=== PATIENT | female | born 1990 | race Caucasian/White ===

== ENCOUNTER → 2018-04-21 15:42 | Outpatient (CLI) | payer OTHER, SELFPAY ==
[2018-04-21 18:25] LABS: hCG Titer Quant., Serum 5686 mIU/mL (<9 non-preg)
== END ==
PROVIDERS: Visit Provider Obstetrics & Gynecology
DX: O20.0 Threatened abortion (principal); N92.1 Excessive and frequent menstruation with irregular cycle
CPT/HCPCS: 36415; 84702

== ENCOUNTER → 2019-01-14 17:11 | Outpatient (CLI) | payer OTHER, SELFPAY ==
[2019-01-19 14:32] LABS: HPV Reflexed? NOT INDICATED
== END ==
PROVIDERS: Referring Provider Obstetrics & Gynecology; Visit Provider Obstetrics & Gynecology
DX: Z12.4 Encounter for screening for malignant neoplasm of cervix (principal)
CPT/HCPCS: 88175; G0145

== ENCOUNTER → 2019-01-27 08:43 | Outpatient (CLI) | payer OTHER, SELFPAY ==
[2019-01-27 10:45] LABS: Hemoglobin A1c 4.9 % (4.2-6.3)
[2019-01-27 10:47] LABS: Estradiol 190.8 pg/mL; Free T3 2.9 pg/mL (2.18-3.98); T4 Free Direct 1.04 ng/dL (0.76-1.46); Thyroid Stim Hormone (TSH) 1.11 uIU/mL (0.358-3.74)
[2019-01-28 11:42] LABS: DHEA Sulfate 296.4 ug/dL (84.8-378.0)
== END ==
PROVIDERS: Visit Provider Obstetrics & Gynecology
DX: N94.3 Premenstrual tension syndrome (principal); N97.0 Female infertility associated with anovulation
CPT/HCPCS: 36415; 82533; 82627; 82670; 83036; 84144; 84403; 84439; 84443; 84481; 82626

== ENCOUNTER → 2021-01-13 15:29 | Outpatient (CLI) | payer OTHER, SELFPAY ==
[2021-01-13 16:37] LABS: Absolute Lymphocyte Count 2.04 X10^3/uL (0.83-4.51); Absolute Neutrophil Count 7.8 X10^3/uL (2.0-7.7); Basophil# 0.03 X10^3/uL; Basophil% 0.3 % (0-1); Eosinophil# 0.02 X10^3/uL; Eosinophils% 0.2 % (0-5); Hematocrit 40.3 % (37-47); Hemoglobin 13.3 g/dL (12.0-15.0); Lymphocyte # 2.04 X10^3/ul (4.0); Lymphocyte % 19.5 % (19-41); Mean Corpuscular Hgb 28.3 pg (27.0-32.0); Mean Corpuscular Volume 85.7 fL (81-99); Mean Platelet Vol. 10.4 fl (6.2-12.0); Monocyte# 0.57 X10^3/uL; Monocyte% 5.4 % (0-10); NRBC Flagged by Analyzer 0 % (0-5); Neutrophil # 7.77 X10^3/uL (2.7-7.7); Neutrophil % 74.3 % (47-70); Platelet Count 260 K/mm3 (150-450); RBC Distribution Width CV 12.9 % (11.6-14.6); RBC Distribution Width SD 40.4 fl (35.1-43.9); White Blood Count 10.5 K/mm3 (4.4-11.0)
[2021-01-14 09:03] LABS: HIV - WCH Non-Reactive (Nonreactive); Hepatitis B Surface Antigen Non-Reactive (Nonreactive); Hepatitis C Antibody Non-Reactive (Nonreactive); Rubella IgG Reactive (Nonreactive); Syphilis Antibodies Non-reactive
[2021-01-16 20:06] LABS: Chlamydia By Nucleic Acid AMP Negative (Negative)
[2021-01-16 20:36] LABS: Gonococcus By Nucleic Acid AMP Negative (Negative)
== END ==
PROVIDERS: Visit Provider Student in an Organized Health Care Education/Training Program
DX: Z11.3 Encounter for screening for infections with a predominantly sexual mode of transmission (principal); Z34.81 Encounter for supervision of other normal pregnancy, first trimester
CPT/HCPCS: 36415; 85025; 86703; 86762; 86780; 86803; 87086; 87088; 87340; 87491; 87591

== ENCOUNTER → 2021-06-06 | Outpatient (CLI) | payer OTHER, SELFPAY ==
[2021-06-06 11:32] LABS: Hematocrit 31.1 % (37-47); Hemoglobin 10.2 g/dL (12.0-15.0); Mean Corp Hgb Conc 32.8 g/dL (32-36); Mean Corpuscular Hgb 28.7 pg (27.0-32.0); Mean Corpuscular Volume 87.4 fL (81-99); Mean Platelet Vol. 10.5 fl (6.2-12.0); Platelet Count 229 K/mm3 (150-450); RBC Distribution Width CV 12.5 % (11.6-14.6); RBC Distribution Width SD 40.2 fl (35.1-43.9); Red Blood Count 3.56 M/mm3 (4.2-5.4); White Blood Count 9.7 K/mm3 (4.4-11.0)
[2021-06-06 11:38] LABS: Glucose Challenge Gest 1H 50g 113 mg/dL (70-140)
== END | disposition home or self-care (01) ==
LOC: WOBLAB 08:44
PROVIDERS: Visit Provider Obstetrics & Gynecology
DX: Z34.83 Encounter for supervision of other normal pregnancy, third trimester (principal)
CPT/HCPCS: 36415; 82950; 85027

== ENCOUNTER → 2021-07-27 10:08 | Outpatient (CLI) | payer OTHER, SELFPAY | PROVIDERS: Visit Provider Obstetrics & Gynecology | DX: Z36.85 Encounter for antenatal screening for Streptococcus B (principal) | CPT/HCPCS: 87077; 87081; 87186 ==

== ENCOUNTER 2021-08-17 06:48 | Inpatient (IN) | payer OTHER, SELFPAY ==
[2021-08-17] VITALS (50 sets, daily range): BP systolic 103–145; BP diastolic 54–91; PULSE 75–145; RESP 16–20; TEMP 36.2–37.2; O2SAT 82–100
[2021-08-17] MEDS: Lactated Ringers 1,000 ML 50 ML IV (06:55)
[2021-08-17 07:18] LABS: Absolute Lymphocyte Count 1.56 X10^3/uL (0.83-4.51); Absolute Neutrophil Count 6.4 X10^3/uL (2.0-7.7); Basophil# 0.02 X10^3/uL; Basophil% 0.2 % (0-1); Eosinophil# 0.03 X10^3/uL; Eosinophils% 0.3 % (0-5); Hematocrit 30.5 % (37-47); Hemoglobin 9.9 g/dL (12.0-15.0); Lymphocyte # 1.56 X10^3/ul (0.83-4.51); Mean Corp Hgb Conc 32.5 g/dL (32-36); Mean Corpuscular Hgb 25.4 pg (27.0-32.0); Mean Corpuscular Volume 78.4 fL (81-99); Monocyte# 0.65 X10^3/uL; Monocyte% 7.5 % (0-10); NRBC Flagged by Analyzer 0 % (0-5); Neutrophil # 6.37 X10^3/uL (2.7-7.7); Neutrophil % 73.3 % (47-70); Platelet Count 236 K/mm3 (150-450); RBC Distribution Width CV 13.7 % (11.6-14.6); RBC Distribution Width SD 38.9 fl (35.1-43.9); Red Blood Count 3.89 M/mm3 (4.2-5.4); White Blood Count 8.7 K/mm3 (4.4-11.0)
[2021-08-17] MEDS: Oxytocin 30 units/NS 500 ml 30 UNITS/500 ML IV.SOLN IV (07:45)
--- NOTE | 2021-08-17 08:52 | HP.PCM.OB_ITS ---
History and Physical Date of Admission: 08/17/21 Chief complaint: Leakage of fluid History present illness: 30-year-old G2, P0 at 39 weeks 0 days with RADHA 08/24/2021 by LMP arrives with leakage of clear fluid. Denies headache, visual changes, chest pain, shortness of breath, nausea vomiting, right upper quadrant pain. Patient states good movement. Obstetric history: G1: SAB G2: Current Past medical history: None Past surgical history wisdom teeth extraction Medications: vitamin Allergies: No known drug allergies Social history: Denies smoking, alcohol use, drug use Family history: Denies history DVT or PE Review of systems: Besides the above pertinent positives a full review of systems was performed and found to be negative Physical exam: Vital signs: Blood pressure 133/81 pulse 83 General: Normal-appearing no acute distress HEENT: Normocephalic atraumatic no cervical of adenopathy Cardiac/respiratory: No use of accessory muscles, nonlabored breathing Abdomen: Soft, nontender, gravid Extremities: No peripheral edema normal peripheral pulses Psych: Normal affect normal demeanor nonpressured speech Labs: White blood cell count 8.7, hemoglobin 9.9, hematocrit 30.5%, platelets 236. Blood type O positive antibody negative Assessment plan: 30-year-old G2, P0 at 39 weeks and 0 days arrives with SROM Admit labor delivery CEFM GBS positive: To start penicillin Initially with elevated blood pressures will draw CBC, CMP, LDH. With SROM will hold on urine protein creatinine ratio, will not change consultant Anesthesia see Routine orders
[2021-08-17] MEDS: Lactated Ringers 500 ML 999 ML IV (09:35)
[2021-08-17 09:43] LABS: ALB/GLOB Ratio 0.5 RATIO (0.9-2.4); AST(SGOT) 30 U/L (15-37); Alanine Aminotransfer ALT/SGPT 45 U/L (13-56); Albumin, Serum 2.3 g/dL (3.2-5.0); Alkaline Phosphatase 71 U/L (45-117); Anion Gap 9 (5-15); BUN 10 mg/dL (7-18); BUN/Creat Ratio 15.7 RATIO (10-20); Calcium,Total 8.9 mg/dL (8.5-10.1); Chloride 107 mmol/L (98-107); Creatinine, Serum 0.64 mg/dL (0.55-1.02); EST Glomerular Filtration Rate 116 mL/min (>60); Est Glom Filt Rate - Afr Amer 140 mL/min (>60); Estimated Creatinine Clearance 110.99 ml/min; Globulin 4.4 g/dL (2.2-4.2); Glucose 80 mg/dL (74-106); LDH 154 U/L (84-246); Potassium 4.2 mmol/L (3.5-5.1); Protein, Total 6.7 g/dL (6.4-8.2); Sodium Level 139 mmol/L (136-145)
[2021-08-17] MEDS: fentaNYL-bupivacaine (epidural) 100 ML BAG EPIDURAL (10:38)
[2021-08-17] MEDS: Penicillin G 3,000,000 Units 50 ML 100 UNITS IV (11:19)
[2021-08-17] MEDS: Acetaminophen 500 MG Tablet PO (12:27)
[2021-08-17] MEDS: Sodium Citrate/Citric Acid 30 ML UDC PO (12:27)
[2021-08-17] MEDS: Cefazolin 2 GM in 0.9% Normal Saline 100 ML IV (12:40)
--- NOTE | 2021-08-17 12:48 | PN.OBGYN_ITS ---
Subjective Subjective Comfortable with spinal Objective Data Objective Data Vital Signs: Vital Signs Temp Pulse BP Pulse Ox 97.6 F L 86 129/65 H 100 08/17/21 12:06 08/17/21 12:06 08/17/21 12:06 08/17/21 12:06 Weight: 175 lb Body Mass Index (BMI) 30.0 Intake & Output: Intake and Output for Last 24 Hours 08/15/21 08/16/21 08/17/21 23:59 23:59 23:59 Intake Total 799.16 / 799.16 Balance 799.16 / 799.16 Lab / Micro Data Result Diagrams: 08/17/21 06:55 08/17/21 09:05 Labs: Laboratory Results - last 24 hr 08/17/21 06:55: WBC 8.7, RBC 3.89 L, Hgb 9.9 L, Hct 30.5 L, MCV 78.4 L, MCH 25.4 L, MCHC 32.5, RDW Std Deviation 38.9, RDW Coeff of Mihai 13.7, Plt Count 236, MPV 12.0, Immature Gran % (Auto) 0.700, Neut % (Auto) 73.3 H, Lymph % (Auto) 18.0 L, [place] % (Auto) 7.5, Eos % (Auto) 0.3, Baso % (Auto) 0.2, Absolute Neuts (auto) 6.4, Absolute Lymphs (auto) 1.56, Nucleated RBC % 0 08/17/21 06:55: Blood Type O POSITIVE, Antibody Screen NEGATIVE 08/17/21 09:05: Sodium 139, Potassium 4.2, Chloride 107, Carbon Dioxide 23.0, Anion Gap 9, BUN 10, Creatinine 0.64, Estim Creat Clear Calc 110.99, Est GFR (MDRD) Af Amer 140, Est GFR (MDRD) Non-Af 116, BUN/Creatinine Ratio 15.7, Glucose 80, Calcium 8.9, Total Bilirubin 0.30, AST 30, ALT 45, Alkaline Phosphatase 71, Lactate Dehydrogenase 154, Total Protein 6.7, Albumin 2.3 L, Globulin 4.4 H, Albumin/Globulin Ratio 0.5 L Micro: Microbiology 08/17/21 07:00 Nasal Secretion SARS-CoV-2 Antigen (Rapid) - Final Physical Exam Const alert, oriented x3, no apparent distress, average body habitus, healthy appearing and well nourished HEENT normocephalic and moist oral mucous membranes Head and Scalp: atraumatic Face and Sinus: normal facial exam Eyes PERRL Neck full ROM Resp normal respiratory effort, no retractions and no use of accessory muscles Psych mental status grossly normal, affect normal, speech normal and activity/motor behavior normal Assessment & Plan (1) : PLAN: Called by nursing that patient is 4 to 5 cm with footling breech. Arrived with patient in the OR, comfortable with spinal anesthesia. Educated patient on findings and need for section, risk benefits alternatives discussed. Patient states understanding wish to proceed. We will proceed f orward with primary section for breech. 2 g Ancef 500 mg azithromycin
--- NOTE | 2021-08-17 13:29 | EX.PCM.OBRPT ---
Details Operative Information Date of Procedure: 08/17/21 Pre-Operative Diagnosis: Term, breech Post-Operative Diagnosis: Term, breech graphics programmer #1: John Burciaga Findings Description of Procedure: Procedure: Primary low transverse section Via Pfannenstiel incision Surgeon: Huan Gallego MD Anesthesia: Epidural EBL: 600 cc IV fluids: 1300 cc Urine output: 300 cc Complications: None Specimen: None Findings: Female infant in footling breech position, Apgars 9/9. Uterus with 7 cm submucosal fibroid posterior uterine wall. Otherwise normal uterus, tubes, and ovaries. Consent: Patient arrived with spontaneous rupture of membranes 1 cm soon found to be footling breech, in need of primary section. Patient understands the risk of the procedure include but are not limited to visceral or vascular injury, prolonged hospitalization, blood loss and need for transfusion, reoperation. Patient states understanding and wishes to proceed. All questions were answered and consent was signed. Procedure: Patient was brought back to the OR where epidural anesthesia found be adequate. 2 g of Ancef and 500 mg of azithromycin were given for infection prophylaxis. Patient was prepared and draped in a supine position with leftward tilt. A Pfannenstiel incision was made at the skin with a scalpel. The incision was carried down to the fascia with a scalpel. The fascia was excised and extended laterally. Inferior aspect of the fascia was grasped and the underlying rectus and pyramidalis muscle were dissected off sharply with Jalloh scissors. In a similar fashion the superior aspect of the fascia was grasped and the underlying rectus muscle was dissected off sharply. Rectus muscle was dissected the midline down to the level of the pubic symphysis. Preperitoneal fatty tissue was noted and peritoneum was entered bluntly. Peritoneum was extended superiorly and inferiorly with good visualization of bladder. Bladder blade was inserted and vesicouterine peritoneum was identified. Low transverse hysterotomy was made. Bladder blade was removed. Hand was placed into the hysterotomy and baby was delivered in standard breech fashion. Cord was cut and clamped and baby was handed off to nursing. Placenta was delivered via manual extraction. IV oxytocin was initiated in order to facilitate uterine contractions. Uterus was exteriorized and wiped out with dry laparotomy sponge in order to remove remaining placental membranes. Above findings were noted, submucosal fibroid that was hemostatic. Uterus was closed in a continuous running fashion. Second layer was performed. [id number] suture was used for hemostasis. Good hemostasis was noted. Uterus was placed back into the abdominal cavity and incision was reinspected. Good hemostasis was noted. Fascia was closed in a continuous running fashion. Skin was closed in a subcuticular fashion. All counts were correct x2 good hemostasis was noted. Patient was brought back to recovery in a stable condition.
[2021-08-17] MEDS: Oxytocin 30 units/NS 500 ml 30 UNITS/500 ML IV.SOLN 167 UNITS IV (14:15)
[2021-08-17] MEDS: Ketorolac 30 MG/ML Syringe IV ×2 (15:39→21:49)
[2021-08-17] MEDS: Lactated Ringers 1,000 ML 100 ML IV (17:15)
[2021-08-17] MEDS: Acetaminophen 500 MG Tablet 1000 MG PO (19:15)
[2021-08-17] MEDS: 0.9% Saline Lock 10 ML Syringe IV (21:52)
[2021-08-18 00:37] VITALS: PULSE 70; RESP 18; O2SAT 99
[2021-08-18] MEDS: Acetaminophen 500 MG Tablet 1000 MG PO ×4 (01:21→19:08)
[2021-08-18 01:23] VITALS: BP 114/71; PULSE 79; RESP 18; TEMP 36.3; O2SAT 100
[2021-08-18] MEDS: 0.9% Saline Lock 10 ML Syringe IV ×2 (04:28→09:59)
[2021-08-18] MEDS: Ketorolac 30 MG/ML Syringe IV ×2 (04:28→09:59)
[2021-08-18 04:47] VITALS: BP 108/60; PULSE 71; RESP 16; TEMP 36.1
[2021-08-18 04:50] LABS: Hematocrit 23.9 % (37-47); Hemoglobin 7.7 g/dL (12.0-15.0); Mean Corp Hgb Conc 32.2 g/dL (32-36); Mean Corpuscular Hgb 25.7 pg (27.0-32.0); Mean Corpuscular Volume 79.7 fL (81-99); Mean Platelet Vol. 11.4 fl (6.2-12.0); Platelet Count 173 K/mm3 (150-450); RBC Distribution Width CV 13.7 % (11.6-14.6); RBC Distribution Width SD 39.6 fl (35.1-43.9)
--- NOTE | 2021-08-18 08:22 | PN.OBGYN_ITS ---
Subjective Subjective Postop day 1. Pain well controlled, minimal at incision. Ambulating and voiding. Working on breast-feeding. We will see again today. Lochia minimal. Objective Data Objective Data Vital Signs: Vital Signs Temp Pulse Resp BP Pulse Ox 97 F L 71 16 108/60 100 08/18/21 04:47 08/18/21 04:47 08/18/21 04:47 08/18/21 04:47 08/18/21 01:23 Oxygen Delivery Method Room Air Weight: 79.379 kg Body Mass Index (BMI) 30.0 Intake & Output: Intake and Output for Last 24 Hours 08/16/21 08/17/21 08/18/21 23:59 23:59 23:59 Intake Total 3166.63 / 3166.63 943.33 / 943.33 Output Total 900 / 900 400 / 400 Balance 2266.63 / 2266.63 543.33 / 543.33 Lab / Micro Data Result Diagrams: 08/18/21 04:40 08/17/21 09:05 Labs: Laboratory Results - last 24 hr 08/17/21 09:05: Sodium 139, Potassium 4.2, Chloride 107, Carbon Dioxide 23.0, Anion Gap 9, BUN 10, Creatinine 0.64, Estim Creat Clear Calc 110.99, Est GFR (MDRD) Af Amer 140, Est GFR (MDRD) Non-Af 116, BUN/Creatinine Ratio 15.7, Glucose 80, Calcium 8.9, Total Bilirubin 0.30, AST 30, ALT 45, Alkaline Phosphatase 71, Lactate Dehydrogenase 154, Total Protein 6.7, Albumin 2.3 L, Globulin 4.4 H, Albumin/Globulin Ratio 0.5 L 08/18/21 04:40: WBC 17.0 H, RBC 3.00 L, Hgb 7.7 L, Hct 23.9 L, MCV 79.7 L, MCH 25.7 L, MCHC 32.2, RDW Std Deviation 39.6, RDW Coeff of Mihai 13.7, Plt Count 173, MPV 11.4 Micro: Microbiology 08/17/21 07:00 Nasal Secretion SARS-CoV-2 Antigen (Rapid) - Final Physical Exam Const alert, oriented x3 and no apparent distress HEENT normocephalic Head and Scalp: atraumatic Neck full ROM Resp normal respiratory effort Cardio regular rate GI normal to inspection, nondistended, normoactive bowel sounds GI Narrative: Uterus 2 cm below umbilicus. dressing clean and dry Back/Spine normal ROM Extremity normal to inspection Extremity Narrative: Minimal pedal edema Neuro no focal motor deficits and no sensory deficits noted Psych mental status grossly normal and affect normal Assessment & Plan (1) state: PLAN: Postop day 1 status post primary section for breech posit ion. Complicated by acute on chronic anemia secondary to surgery. Vitals are stable. Patient is asymptomatic: Denies lightheadedness, tachycardia, shortness of breath. We will supplement with iron on home-going. Blood pressure was elevated on admission, labs were within normal limits and blood pressure within normal limits at this time. Will have postop visit in 1 week. Home tomorrow. (2) Delivery by section: (3) Other acute postprocedural pain:
--- NOTE | 2021-08-18 08:25 | PCM.DC ---
Discharge Instructions Diet Discharge Diet: No restrictions Activity Discharge Activity: Return to Normal Activity and May Shower May resume sexual activity in: 4-6 weeks Weight Bearing Status: Weight bearing as tolerated Lifting Restrictions: No greater than 25 pounds Dressing / Incision Call your doctor if your incision/area has: Continuous Slow Oozing, Increased Redness and Foul Smelling Discharge Call your doctor if you observe: Fever of 101 or Higher, Change in Color, Inability to urinate, Using more than 1 pad per hour, Shortness of breath, Dizziness, Swelling in the ankles, Chest pain and Calf discomfort Remove Dressing in: 1 week Cleanse incision/area with: Soap & Water Follow Up Care Please Follow Up With: Huan Gallego MD When: 1-week post op appointment in 6-week visit Test Results: Test results from this visit will be discussed in further detail at your follow-up appointment, if applicable. Discharge Plan Admission Admit Date/Time: 08/17/21 06:48 Primary Reason for Your Visit: section Attending Provider: Huan Gallego Primary Care Provider: Care Physician,Tamera Primary Discharge Orders/Prescriptions Prescriptions: New oxycodone 5 mg tablet 5 mg PO Q6H PRN (Reason: pain (scale score 7-10)) 5 Days Qty: 20 RF: 0 Continued [id number] 1 mg Tablet 1 tab PO DAILY RF: 0 Referrals / Follow Up: Care Physician,No Primary [Primary Care Provider] - Disposition Disposition (needs filled in before D/C Order can be placed): Home, Self Care
[2021-08-18 09:47] VITALS: BP 114/63; PULSE 83; RESP 18; TEMP 36.8; O2SAT 97
[2021-08-18] MEDS: Enoxaparin 40 MG/0.4 ML Syringe SC (10:00)
[2021-08-18] MEDS: Senna/Docusate Sodium 1 Tablet PO (13:38)
[2021-08-18 13:40] VITALS: BP 111/61; PULSE 93; RESP 16; TEMP 36.6; O2SAT 97
[2021-08-18] MEDS: Ibuprofen 600 MG Tablet PO ×2 (15:45→21:00)
[2021-08-18 19:54] VITALS: BP 106/63; PULSE 94; RESP 16; TEMP 36.6
[2021-08-19] MEDS: Acetaminophen 500 MG Tablet 1000 MG PO ×2 (01:40→07:21)
[2021-08-19 02:12] VITALS: BP 132/71; PULSE 77; RESP 16; TEMP 36.6
[2021-08-19] MEDS: Ibuprofen 600 MG Tablet PO ×2 (02:28→08:34)
--- NOTE | 2021-08-19 07:39 | PCM.PN.OB ---
Subjective Subjective Postoperative day 2. Pain controlled. Lochia minimal. Breast-feeding going better. Objective Data Objective Data Vital Signs: Vital Signs Temp Pulse Resp BP Pulse Ox 97.9 F 77 16 132/71 H 97 08/19/21 02:12 08/19/21 02:12 08/19/21 02:12 08/19/21 02:12 08/18/21 13:40 Oxygen Delivery Method Room Air Weight: 79.379 kg Body Mass Index (BMI) 30.0 Intake & Output: Intake and Output for Last 24 Hours 08/17/21 08/18/21 08/19/21 23:59 23:59 23:59 Intake Total 3166.63 / 3166.63 943.33 / 943.33 Output Total 900 / 900 400 / 400 Balance 2266.63 / 2266.63 543.33 / 543.33 Lab / Micro Data Result Diagrams: 08/18/21 04:40 08/17/21 09:05 Micro: Microbiology 08/17/21 07:00 Nasal Secretion SARS-CoV-2 Antigen (Rapid) - Final Physical Exam Const alert, oriented x3 and no apparent distress HEENT normocephalic Head and Scalp: atraumatic Neck full ROM Resp normal respiratory effort Cardio regular rate GI normal to inspection, nondistended, normoactive bowel sounds GI Narrative: Uterus 2 cm below umbilicus Back/Spine normal ROM Extremity normal to inspection Extremity Narrative: Minimal pedal edema Neuro no focal motor deficits and no sensory deficits noted Psych mental status grossly normal and affect normal Assessment & Plan (1) Delivery by section: PLAN: Postop day 2 status post primary section for breech position. Complicated by acute on chronic anemia secondary to surgery. Vitals are stable. Patient continues to be asymptomatic.. We will supplement with iron on home-going. Blood pressure was elevated on admission, labs were within normal limits and blood pressure within normal limits at this time. Will have postop visit in 1 week. Home tomorrow. (2) state: (3) Other acute postprocedural pain:
[2021-08-19 08:36] VITALS: BP 114/74; PULSE 84; RESP 16; TEMP 36.7; O2SAT 96
[2021-08-19] MEDS: Enoxaparin 40 MG/0.4 ML Syringe SC (10:27)
[2021-08-19] MEDS: Senna/Docusate Sodium 1 Tablet PO (10:28)
== END 2021-08-19 12:00 | disposition home or self-care (01) | DRG 788 ==
LOC: WPOUT 06:52 → WP 06:52
PROVIDERS: Obstetrics & Gynecology; Admitting Provider Obstetrics & Gynecology; Referring Provider Obstetrics & Gynecology; Visit Provider Obstetrics & Gynecology
DX: O99.824 Streptococcus B carrier state complicating childbirth (principal); O34.13 Maternal care for benign tumor of corpus uteri, third trimester; D25.0 Submucous leiomyoma of uterus; O32.8XX0 Maternal care for other malpresentation of fetus, not applicable or unspecified; Z20.822 Contact with and (suspected) exposure to COVID-19; Z3A.39 39 weeks gestation of pregnancy; Z37.0 Single live birth
CPT/HCPCS: 59025; 59050; 80053; 83615; 85025; 85027; 86850; 86900; 86901; 87426; 99218; J7120; A4216; G0378; J2405

== ENCOUNTER → 2022-06-05 | Outpatient (CLI) | payer OTHER, SELFPAY ==
[2022-06-08 15:46] LABS: HPV APTIMA, High Risk Negative (Negative)
== END | disposition home or self-care (01) ==
LOC: LABSPEC 09:17
PROVIDERS: Visit Provider Student in an Organized Health Care Education/Training Program
DX: Z12.4 Encounter for screening for malignant neoplasm of cervix (principal)
CPT/HCPCS: 87624; 88175; G0145

== ENCOUNTER → 2022-09-18 | Outpatient (CLI) | payer OTHER, SELFPAY ==
[2022-09-18 17:08] LABS: Absolute Lymphocyte Count 2.61 X10^3/uL (0.83-4.51); Basophil# 0.04 X10^3/uL; Basophil% 0.3 % (0-1); Eosinophil# 0.07 X10^3/uL; Eosinophils% 0.6 % (0-5); Hematocrit 39.4 % (37-47); Hemoglobin 13.5 g/dL (12.0-15.0); Lymphocyte # 2.61 X10^3/ul (0.83-4.51); Lymphocyte % 22.8 % (19-41); Mean Corp Hgb Conc 34.3 g/dL (32-36); Mean Corpuscular Hgb 28.5 pg (27.0-32.0); Mean Corpuscular Volume 83.3 fL (81-99); Mean Platelet Vol. 9.9 fl (6.2-12.0); Monocyte# 0.76 X10^3/uL; Monocyte% 6.6 % (0-10); NRBC Flagged by Analyzer 0 % (0-5); Neutrophil # 7.95 X10^3/uL (2.7-7.7); Neutrophil % 69.4 % (47-70); Platelet Count 282 K/mm3 (150-450); RBC Distribution Width CV 12.8 % (11.6-14.6); RBC Distribution Width SD 38.9 fl (35.1-43.9); Red Blood Count 4.73 M/mm3 (4.2-5.4); White Blood Count 11.5 K/mm3 (4.4-11.0)
[2022-09-18 18:33] LABS: HIV - WCH Non-Reactive (Nonreactive); Hepatitis B Surface Antigen Non-Reactive (Nonreactive); Hepatitis C Antibody Non-Reactive (Nonreactive); Rubella IgG Reactive (Nonreactive); Syphilis Antibodies Non-reactive
[2022-09-20 09:00] LABS: V-Zoster IgG (Immunity) 1735 index (Immune >165)
[2022-09-21 04:07] LABS: Chlamydia By Nucleic Acid AMP Negative (Negative)
[2022-09-21 13:50] LABS: Gonococcus By Nucleic Acid AMP Negative (Negative)
== END | disposition home or self-care (01) ==
LOC: WOBLAB 16:44
PROVIDERS: Visit Provider Student in an Organized Health Care Education/Training Program
DX: Z34.81 Encounter for supervision of other normal pregnancy, first trimester (principal)
CPT/HCPCS: 36415; 85025; 86703; 86762; 86780; 86787; 86803; 87077; 87086; 87088; 87186; 87340; 87491; 87591

== ENCOUNTER → 2022-10-16 | Outpatient (CLI) | payer OTHER, SELFPAY | END | disposition home or self-care (01) | LOC: LABSPEC 16:27 | PROVIDERS: Visit Provider Student in an Organized Health Care Education/Training Program | DX: N39.0 Urinary tract infection, site not specified (principal) | CPT/HCPCS: 87086; 87088 ==

== ENCOUNTER → 2022-12-11 | Outpatient (CLI) | payer OTHER, SELFPAY ==
--- NOTE | 2022-12-11 13:14 | US_ITS ---
STUDY: SECOND AND THIRD TRIMESTER OBSTETRICAL ULTRASOUND REASON FOR EXAM: Female, 32 years old ANATOMY LMP: 07/18/2022. TECHNIQUE: Transabdominal TECHNICAL QUALITY: Adequate. PRIOR ULTRASOUND: None. FINDINGS: There is a single intrauterine fetus. The fetus is in a cephalic presentation. There is demonstrated cardiac activity with a heart rate of 138 bpm. There is a normal amniotic fluid volume. The largest amniotic fluid pocket measures 4.64 cm. The amniotic fluid index (ROB) is within normal limits. The placenta is anterior in location and is not low lying. The placental tip is at 5.7 cm proximal to the cervical os. There are Grade 0 placental changes. The cervix measures 3.7 cm in length. The adnexal regions are not visualized. BIOMETRY: BPD: 4.88 cm: 20 weeks, 5 days HC: 18 cm: 20 weeks, 3 days AC: 15.65 cm: 20 weeks, 6 days FL: 3.42 cm: 20 weeks, 5 days CI: 77.7% FL/BPD: 70% FL/HC: FL/AC: 21.8% HC/AC: 1.1 age by current US: 20 weeks, 4 days. RADHA by current US: 04/26/2023. Estimated weight: 378 grams, +/- 57 grams, 41 %. Age by LMP: 20 weeks, 6 days. RADHA by LMP: 04/24/2023. ANATOMY: Gender: Female Cranium: Normal lateral ventricles. Normal choroid plexus. Normal cerebellum. Normal cisterna magna. Normal face, nose and lips. Chest: Normal 4-chamber heart. Abdomen/Pelvis: Normal diaphragm. Normal stomach. Normal abdominal wall. Normal cord insertion. Normal 3 vessel cord. Normal kidneys. Normal bladder. Spine: Normal cervical spine. Normal thoracic spine. Normal lumbar spine. Normal sacrum. Extremities: Normal bilateral upper extremities. Normal bilateral lower extremities. US/OB Anatomy Scan IMPRESSION: Single live injury Single live intrauterine gestation with a mean gestational age of 20 weeks and 4 days. Electronically Signed: Reji Rojas MD at 15:36 EST ,
== END | disposition home or self-care (01) ==
PROVIDERS: Visit Provider Student in an Organized Health Care Education/Training Program
DX: Z34.82 Encounter for supervision of other normal pregnancy, second trimester (principal)
CPT/HCPCS: 76805

== ENCOUNTER → 2023-01-08 | Outpatient (CLI) | payer OTHER, SELFPAY ==
[2023-01-08 09:59] LABS: Absolute Lymphocyte Count 1.96 X10^3/uL (0.83-4.51); Basophil# 0.02 X10^3/uL; Basophil% 0.2 % (0-1); Eosinophil# 0.04 X10^3/uL; Eosinophils% 0.4 % (0-5); Hematocrit 34.3 % (37-47); Hemoglobin 11.3 g/dL (12.0-15.0); Lymphocyte # 1.96 X10^3/ul (0.83-4.51); Lymphocyte % 20.6 % (19-41); Mean Corp Hgb Conc 32.9 g/dL (32-36); Mean Corpuscular Hgb 28.8 pg (27.0-32.0); Mean Corpuscular Volume 87.3 fL (81-99); Mean Platelet Vol. 9.8 fl (6.2-12.0); Monocyte# 0.47 X10^3/uL; Monocyte% 4.9 % (0-10); NRBC Flagged by Analyzer 0 % (0-5); Neutrophil # 6.97 X10^3/uL (2.7-7.7); Neutrophil % 73.3 % (47-70); Platelet Count 249 K/mm3 (150-450); RBC Distribution Width CV 12.4 % (11.6-14.6); RBC Distribution Width SD 39.7 fl (35.1-43.9); Red Blood Count 3.93 M/mm3 (4.2-5.4); White Blood Count 9.5 K/mm3 (4.4-11.0)
[2023-01-08 10:28] LABS: Glucose Challenge Gest 1H 50g 114 mg/dL (70-140)
[2023-01-08 10:50] LABS: Syphilis Antibodies Non-reactive
== END | disposition home or self-care (01) ==
PROVIDERS: Visit Provider Student in an Organized Health Care Education/Training Program
DX: Z34.82 Encounter for supervision of other normal pregnancy, second trimester (principal)
CPT/HCPCS: 36415; 82950; 85025; 86780

== ENCOUNTER → 2023-02-15 | Outpatient (CLI) | payer SELFPAY | END | disposition home or self-care (01) | LOC: LABSPEC 13:47 | PROVIDERS: Visit Provider Nurse Practitioner Women's Health | DX: N39.0 Urinary tract infection, site not specified (principal) | CPT/HCPCS: 87086; 87088 ==

== ENCOUNTER → 2023-03-29 | Outpatient (CLI) | payer SELFPAY ==
[2023-03-29 16:26] LABS: Absolute Lymphocyte Count 2.37 X10^3/uL (0.83-4.51); Basophil# 0.02 X10^3/uL; Basophil% 0.2 % (0-1); Eosinophil# 0.06 X10^3/uL; Eosinophils% 0.5 % (0-5); Hematocrit 29.4 % (37-47); Hemoglobin 9.6 g/dL (12.0-15.0); Lymphocyte # 2.37 X10^3/ul (0.83-4.51); Lymphocyte % 19.2 % (19-41); Mean Corp Hgb Conc 32.7 g/dL (32-36); Mean Corpuscular Hgb 25.9 pg (27.0-32.0); Mean Corpuscular Volume 79.5 fL (81-99); Mean Platelet Vol. 10.3 fl (6.2-12.0); Monocyte# 0.77 X10^3/uL; Monocyte% 6.2 % (0-10); NRBC Flagged by Analyzer 0 % (0-5); Neutrophil # 8.96 X10^3/uL (2.7-7.7); Neutrophil % 72.6 % (47-70); Platelet Count 245 K/mm3 (150-450); RBC Distribution Width CV 13.2 % (11.6-14.6); RBC Distribution Width SD 37.3 fl (35.1-43.9); White Blood Count 12.3 K/mm3 (4.4-11.0)
== END | disposition home or self-care (01) ==
LOC: LABSPEC 15:56
PROVIDERS: Visit Provider Nurse Practitioner Women's Health
DX: Z34.83 Encounter for supervision of other normal pregnancy, third trimester (principal); Z36.85 Encounter for antenatal screening for Streptococcus B; Z3A.00 Weeks of gestation of pregnancy not specified
CPT/HCPCS: 36415; 85025; 87081

== ENCOUNTER 2023-04-09 02:43 | Inpatient (IN) | payer SELFPAY ==
[2023-04-09] VITALS (104 sets, daily range): BP systolic 87–122; BP diastolic 47–83; PULSE 70–109; RESP 16–18; TEMP 35.7–36.8; O2SAT 94–100; BMI 30.2
--- NOTE | 2023-04-09 03:08 | PCM.HP.BLA ---
History and Physical Date of Admission: 04/09/23 Chief complaint: Contractions History present illness: 32-year-old G2, P1 at 37 weeks and 6 days with RADHA 04/24/2022 arrives with contractions. Denies headache, vision change, chest pain, shortness of breath, nausea vomit, right upper quadrant pain. Patient states good movement. is complicated by beta thalassemia, BMI 30 Obstetric history: G1: 39-week primary section for breech female 6 pounds 7 ounces G2: Current Past medical history: Beta thalassemia Medications: vitamin Past surgical history: section, wisdom tooth extraction Social history: Denies smoking, alcohol use, drug use Allergies: No known drug allergies Family history: Denies history DVT or PE Review of systems: Besides above pertinent positives a full review of systems was performed and found to be negative Physical exam: Vitals: Blood pressure 122/83 pulse 102 temperature 97.7 ?F General: Normal-appearing no acute distress HEENT: Normocephalic atraumatic no cervical lymphadenopathy Cardiac/respiratory: No use of accessory muscles, nonlabored breathing Abdomen: Soft, nontender, gravid Extremities: No peripheral edema normal peripheral pulses Psych: Normal affect normal demeanor nonpressured speech Labs: Pending Assessment and plan: Called by nursing patient arrived to triage with contractions cervical exam per nursing 4 cm instructed nursing to call in OR team and [employer] SET UP OPERATOR notify anesthesia, given orders for 2 g Ancef and 500 mg of azithromycin preoperatively. Patient seen and examined. 32-year-old at 37 weeks and 6 days in labor with history of section elects for repeat section. Patient understands risk of the procedure include but are not limited to visceral vascular injury, prolonged hospitalization, blood loss and need for transfusion, reoperation. Patient state understanding wish to proceed. All questions were answered and consent was signed. For repeat now. Beta thalassemia for CBC now and follow-up
[2023-04-09] MEDS: Lactated Ringers 1,000 ML 999 ML IV (03:15)
[2023-04-09 03:26] LABS: Absolute Lymphocyte Count 1.85 X10^3/uL (0.83-4.51); Absolute Neutrophil Count 12.8 X10^3/uL (2.0-7.7); Basophil# 0.03 X10^3/uL; Basophil% 0.2 % (0-1); Eosinophil# 0.01 X10^3/uL; Eosinophils% 0.1 % (0-5); Hematocrit 32.4 % (37-47); Hemoglobin 10.4 g/dL (12.0-15.0); Lymphocyte # 1.85 X10^3/ul (0.83-4.51); Lymphocyte % 11.9 % (19-41); Mean Corp Hgb Conc 32.1 g/dL (32-36); Mean Corpuscular Volume 77.9 fL (81-99); Mean Platelet Vol. 10.2 fl (6.2-12.0); Monocyte# 0.72 X10^3/uL; Monocyte% 4.6 % (0-10); NRBC Flagged by Analyzer 0 % (0-5); Neutrophil # 12.83 X10^3/uL (2.7-7.7); Neutrophil % 82.2 % (47-70); Platelet Count 237 K/mm3 (150-450); RBC Distribution Width CV 14.6 % (11.6-14.6); RBC Distribution Width SD 38.7 fl (35.1-43.9); Red Blood Count 4.16 M/mm3 (4.2-5.4); White Blood Count 15.6 K/mm3 (4.4-11.0)
[2023-04-09] MEDS: Acetaminophen 500 MG Tablet 1000 MG PO ×4 (03:26→23:05)
[2023-04-09] MEDS: Sodium Citrate/Citric Acid 30 ML UDC PO (03:26)
[2023-04-09] MEDS: Cefazolin 2 GM in 0.9% Normal Saline 100 ML IV (03:35)
--- NOTE | 2023-04-09 04:22 | EX.PCM.OBRPT ---
Details Operative Information Date of Procedure: 04/09/23 Pre-Operative Diagnosis: Term, labor, history of section Post-Operative Diagnosis: Term, labor, history of section Findings Description of Procedure: Procedure: Repeat low transverse section Via Pfannenstiel incision Surgeon: Huan Gallego MD Anesthesia: Spinal EBL: 700 cc Urine output: 50 cc IV fluids: 800 cc Complications: None Specimen: None Findings: Female infant in vertex position Apgars 7/9. Normal uterus, tubes, and ovaries. Moderate amount of scar tissue Consent: Patient arrived in labor with a history of section at term desires repeat section Via Pfannenstiel incision. Patient understands risk of the procedure include but are not limited to visceral or vascular injury, prolonged hospitalization, blood loss need for transfusion, reoperation. Patient state understanding wish to proceed. All questions were answered and consent was signed. Procedure: Patient was brought back to the OR where spinal anesthesia was found to be adequate. 2 g of Ancef and 500 mg of azithromycin were given for infection prophylaxis. Patient was prepared and draped in a supine position with leftward tilt. A Pfannenstiel incision was made at the skin with a scalpel. The incision was carried down to the fascia with a scalpel. The fascia was excised and extended laterally. Inferior aspect of the fascia was grasped with a clamp and the underlying rectus and pyramidalis muscle were dissected off sharply. In a similar fashion the superior aspect of the fascia was grasped with a clamp and the underlying rectus muscle was dissected off sharply. Rectus muscle was dissected midline down to the level of the pubic symphysis. Preperitoneal fatty tissue was noted and peritoneum was entered bluntly. Peritoneum was extended superiorly and inferiorly with good visualization of bladder. Bladder blade was inserted and vesicouterine peritoneum was identified. Low transverse hysterotomy was made. Thin meconium fluid was noted, notified nursing. Hand was placed into the incision and gentle fundal pressure was applied once the head was brought into the incision and the bladder blade was removed. Head and shoulders were delivered with ease. Cord was clamped and cut. Baby was handed off to nursing. Placenta was delivered via cord traction and fundal massage. IV oxytocin was initiated in order to facilitate uterine contractions. Uterus was exteriorized and wiped out with dry laparotomy sponge in order to remove remaining placental membranes. Uterus was closed in a continuous running fashion. Hemostasis was achieved with the Bovie. Uterus was placed back in the abdominal cavity and the incision was reinspected, good hemostasis was noted. Piedad was placed over the hysterotomy. Good hemostasis was noted. Fascia was closed in a continuous running fashion with PDS suture. Subcutaneous irrigation was performed and good hemostasis was noted. Skin was closed in a subcuticular fashion. Good hemostasis was noted. All counts were correct x2. Patient tolerated the procedure well and was brought to recovery in a stable condition.
[2023-04-09] MEDS: Oxytocin 15 Units/NS 250ml 15 UNITS/250 ML IV.SOLN 83 UNITS IV (04:49)
[2023-04-09] MEDS: Ketorolac 30 MG/ML Syringe IV ×4 (04:54→23:04)
[2023-04-09 04:55] LABS: Syphilis Antibodies Non-reactive
[2023-04-09] MEDS: Lactated Ringers 1,000 ML 100 ML IV (07:52)
[2023-04-09] MEDS: Senna/Docusate Sodium 1 Tablet PO (10:00)
[2023-04-09] MEDS: Enoxaparin 40 MG/0.4 ML Syringe SC (16:39)
[2023-04-09] MEDS: 0.9% Saline Lock 10 ML Syringe IV (17:38)
[2023-04-10] MEDS: Acetaminophen 500 MG Tablet 1000 MG PO ×2 (04:30→11:16)
[2023-04-10] MEDS: Ibuprofen 600 MG Tablet PO ×2 (08:40→14:51)
--- NOTE | 2023-04-10 08:58 | PCM.PN.OB ---
Subjective Subjective Pain controlled. Lochia minimal. Breast-feeding. Objective Data Objective Data Vital Signs: Vital Signs Temp Pulse Resp BP Pulse Ox O2 Del Method 97.7 F L 86 16 98/53 L 97 Room Air 04/09/23 20:00 04/09/23 20:00 04/09/23 20:00 04/09/23 20:00 04/09/23 20:00 04/09/23 20:00 Oxygen Delivery Method Room Air Weight: 80.014 kg Body Mass Index (BMI) 30.2 Intake & Output: Intake and Output for Last 24 Hours 04/08/23 04/09/23 04/10/23 23:59 23:59 23:59 Intake Total 2278.33 / 2278.33 Output Total 1999 Balance 278.33 / 278.33 Lab / Micro Data Attestation: I reviewed the patient's lab results. 04/09/23 03:15 Physical Exam Const alert, oriented x3 and no apparent distress HEENT normocephalic Head and Scalp: atraumatic Neck full ROM Resp normal respiratory effort Cardio regular rate GI normal to inspection, nondistended, normoactive bowel sounds GI Narrative: Uterus 2 cm below umbilicus, dressing clean and dry Back/Spine normal ROM Extremity normal to inspection Extremity Narrative: Minimal pedal edema Neuro no focal motor deficits and no sensory deficits noted Psych mental status grossly normal and affect normal Assessment & Plan (1) Acute postoperative pain: PLAN: Postop day 1 status post repeat section. Stable. Pain controlled. Discharge home today. (2) Delivery by section:
--- NOTE | 2023-04-10 08:59 | DCINST_ITS ---
Discharge Instructions Diet Discharge Diet: No restrictions Activity Discharge Activity: Return to Normal Activity and May Shower May resume sexual activity in: 4-6 weeks Weight Bearing Status: Weight bearing as tolerated Lifting Restrictions: No greater than 25 pounds Dressing / Incision Call your doctor if your incision/area has: Continuous Slow Oozing, Increased Redness and Swelling at the incision site Call your doctor if you observe: Fever of 101 or Higher, Change in Color, Inability to urinate, Using more than 1 pad per hour, Shortness of breath, Dizziness, Swelling in the ankles, Chest pain and Calf discomfort Remove Dressing in: 1 week Cleanse incision/area with: Soap & Water and Keep Dressing Clean & Dry Follow Up Care Please Follow Up With: Laura Gallego DO When: 2-week and 6-week visit Test Results: Test results from this visit will be discussed in further detail at your follow- up appointment, if applicable. Discharge Plan Admission Admit Date/Time: 04/09/23 02:43 Primary Reason for Your Visit: section Attending Provider: Huan Gallego Primary Care Provider: Care PhysicianTamera Primary Instructions Additional Instructions / Restrictions: Regular diet. Okay to shower. No tub baths for 2 weeks. No intercourse for 6 to 8 weeks. No lifting over 25 pounds for 2 to 3 weeks Discharge Orders/Prescriptions Prescriptions: New oxycodone 5 mg tablet 5 mg PO Q6H PRN (Reason: pain (scale score 7-10)) 4 Days Qty: 16 0RF Discontinued [id number] 1 mg Tablet 1 tab PO DAILY oxycodone 5 mg tablet 5 mg PO Q6H PRN (Reason: pain (scale score 7-10)) 5 Days Qty: 20 0RF Referrals / Follow Up: Care Physician,No Primary [Primary Care Provider] - Disposition Disposition (needs filled in before D/C Order can be placed): Home, Self Care
[2023-04-10 10:25] VITALS: BP 103/70; PULSE 92; RESP 16; TEMP 36.8; O2SAT 98
--- NOTE | 2023-04-10 10:45 | EKG12_ITS ---
Test Reason : SYNCOPE Blood Pressure : / mmHG Vent. Rate : 096 BPM Atrial Rate : 096 BPM P-R Int : 108 ms QRS Dur : 078 ms QT Int : 332 ms P-R-T Axes : 042 032 019 degrees QTc Int : 419 ms Sinus rhythm with short NC Otherwise normal ECG No previous ECGs available Confirmed by GILDA LAW, CALI ([id number]), food editor ESSENCE WIGGINS ([id number]) on 04/12/2023 9:24:52 AM Referred By: Huan Gallego Confirmed By:CALI VO MD
[2023-04-10] MEDS: Enoxaparin 40 MG/0.4 ML Syringe SC (11:17)
[2023-04-10] MEDS: Senna/Docusate Sodium 1 Tablet PO (11:17)
[2023-04-10 14:43] VITALS: BP 103/55; PULSE 92; RESP 16; TEMP 36.8; O2SAT 97
[2023-04-10 14:51] LABS: Hematocrit 29.6 % (37-47); Hemoglobin 9.3 g/dL (12.0-15.0); Mean Corp Hgb Conc 31.4 g/dL (32-36); Mean Corpuscular Hgb 25.4 pg (27.0-32.0); Mean Corpuscular Volume 80.9 fL (81-99); Mean Platelet Vol. 10.5 fl (6.2-12.0); Platelet Count 230 K/mm3 (150-450); RBC Distribution Width CV 15.1 % (11.6-14.6); RBC Distribution Width SD 41.8 fl (35.1-43.9); Red Blood Count 3.66 M/mm3 (4.2-5.4); White Blood Count 14.9 K/mm3 (4.4-11.0)
== END 2023-04-10 15:36 | disposition home or self-care (01) | DRG 788 ==
LOC: WPOUT 02:44 → WP 02:45
PROVIDERS: Admitting Provider Obstetrics & Gynecology; Referring Provider Obstetrics & Gynecology; Visit Provider Obstetrics & Gynecology
DX: O34.211 Maternal care for low transverse scar from previous cesarean delivery (principal); D56.1 Beta thalassemia; O99.02 Anemia complicating childbirth; O77.0 Labor and delivery complicated by meconium in amniotic fluid; Z37.0 Single live birth; Z3A.37 37 weeks gestation of pregnancy; Z87.59 Personal history of other complications of pregnancy, childbirth and the puerperium
CPT/HCPCS: 59025; 59050; 85025; 85027; 86780; 86850; 86900; 86901; 93005; 99221; J7120; A4216; G0378; J2405